=== PATIENT | female | born 1955 | race African-American/Black ===

== ENCOUNTER 2024-05-29 17:14 | Emergency (ER) | payer OTHER ==
[~2024-05-29] VITALS: Ht 167.6 cm; Wt 95.0 kg
[2024-05-29 17:20] VITALS: TEMP 36; O2SAT 100
[2024-05-29] MEDS ORDERED: HYDROCODONE/ACETAMINOPHEN 5/325MG TABLET PO ONE (18:30)
[2024-05-29] MEDS ORDERED: METH-653 MT (20:58)
[2024-05-29] MEDS ORDERED: LIDO700A15 TP (20:58)
[2024-05-29] MEDS ORDERED: IBUP-2028 MT (20:58)
[2024-05-29] MEDS ORDERED: TOPUD PO (20:58)
[2024-05-29 21:51] VITALS: O2SAT 98
[2024-05-29] MEDS: HYDROCODONE/ACETAMINOPHEN 5/325MG TABLET PO NR (22:21)
[2024-05-29 22:22] VITALS: BP 185/79; PULSE 53; RESP 16
[2024-05-29] MEDS: IBUPROFEN 600MG TABLET PO ONE (22:22)
== END 2024-05-29 22:36 | disposition home or self-care (01) ==
LOC: ER 17:14
DX: M25.552 Pain in left hip (principal); R51.9 Headache, unspecified; R73.03 Prediabetes; Z88.5 Allergy status to narcotic agent; I10 Essential (primary) hypertension; Z88.2 Allergy status to sulfonamides; W10.9XXA Fall (on) (from) unspecified stairs and steps, initial encounter; Y93.89 Activity, other specified; Y92.89 Other specified places as the place of occurrence of the external cause; Y99.8 Other external cause status
CPT/HCPCS: 71045; 72100; 73502; 99284